=== PATIENT | female | born 1940 | race Caucasian/White ===

== ENCOUNTER 2016-11-27 07:01 | Outpatient (CLI) | payer MEDICARE, OTHER ==
[~2016-11-27] VITALS: Ht 162.6 cm; Wt 77.3 kg
[2016-11-27] VITALS (13 sets, daily range): BP systolic 103–169; BP diastolic 55–95; PULSE 63–81; TEMP 97.4–97.5
[2016-11-27] MEDS ORDERED: CRESTOR40 MG PO (07:19)
[2016-11-27] MEDS ORDERED: ASPIRIN E.C. 8181 MG PO (07:20)
[2016-11-27] MEDS ORDERED: LOPRESSOR 225 MG/TAB PO (07:22)
[2016-11-27] MEDS ORDERED: AMBIEN 10MG10 MG PO (07:23)
[2016-11-27] MEDS ORDERED: GAVISCON F1 TAB.CHEW PO (07:24)
[2016-11-27 07:43] LABS: HEMATOCRIT 42.1 % (37.0-47.0); HEMOGLOBIN 13.7 g/dl (12.5-16.0); MEAN CELL VOLUME 88 fl (80.0-100.0); MEAN CORPUSCULAR HEMOGLOBIN 29 pg (27.0-31.0); MEAN CORPUSCULAR HGB CONC 33 g/dl (33.0-37.0); PLATELET COUNT 174 K/mm3 (130-400); RED BLOOD COUNT 4.79 M/mm3 (4.10-5.30); REDCELL DISTRIBUTION WIDTH-CV 13.8 % (11.5-14.5); WHITE BLOOD COUNT 5.3 K/mm3 (4.8-10.8)
[2016-11-27 07:49] LABS: INR 0.9 (0.8-3.0); PROTHROMBIN TIME 10.2 SECONDS (9.7-12.8)
[2016-11-27 08:01] LABS: CALCIUM 8.7 mg/dL (8.4-10.2); CREATININE, serum 0.88 mg/dL (0.52-1.25); POTASSIUM 3.7 mmol/L (3.4-5.0)
== END 2016-11-27 14:17 | disposition home or self-care (01) ==
LOC: COL.RAD 07:01
PROVIDERS: Internal Medicine Interventional Cardiology
DX: I35.1 Nonrheumatic aortic (valve) insufficiency (principal); I31.3 Pericardial effusion (noninflammatory); R06.02 Shortness of breath; R53.83 Other fatigue; Z90.710 Acquired absence of both cervix and uterus

== ENCOUNTER 2018-02-27 08:19 | Emergency (ER) | payer MEDICARE, OTHER ==
[~2018-02-27] VITALS: Ht 162.6 cm; Wt 75.0 kg
[~2018-02-27 08:19] MED LIST: AMBIEN 10MG10 MG PO; ASPIRIN E.C. 8181 MG PO; CRESTOR40 MG PO; GAVISCON F1 TAB.CHEW PO; LOPRESSOR 225 MG/TAB PO
[2018-02-27 08:23] VITALS: BP 128/88; TEMP 97.4
[2018-02-27] MEDS ORDERED: DRISDOL50000 IU PO (08:49)
[2018-02-27] MEDS ORDERED: CRESTOR40 MG PO (08:50)
[2018-02-27] MEDS ORDERED: ASPIRIN E.C. 8181 MG PO (08:50)
[2018-02-27] MEDS ORDERED: LOPRESSOR 225 MG/TAB PO (08:51)
[2018-02-27] MEDS ORDERED: POLYMYXIN B/TRIMETH OS (08:52)
[2018-02-27] MEDS ORDERED: PRED FORTE 1 ML1 ML OS (08:52)
[2018-02-27 08:54] LABS: COLLECTION METHOD CLEAN CATCH
[2018-02-27 08:56] LABS: BASO % 0.4 % (0.0-2.0); EOS # 0.1 (0.0-0.7); EOS % 1.3 % (0-4.0); GRAN # 2.9 (1.4-6.5); GRAN % 60.7 % (42.2-75.2); HEMATOCRIT 42.4 % (37.0-47.0); HEMOGLOBIN 13.4 g/dl (12.5-16.0); LYMPH # 1.4 (1.2-3.4); LYMPH % 29.4 % (20.0-51.0); MEAN CELL VOLUME 90 fl (80.0-100.0); MEAN CORPUSCULAR HEMOGLOBIN 29 pg (27.0-31.0); MEAN CORPUSCULAR HGB CONC 32 g/dl (33.0-37.0); MEAN PLATELET VOLUME 9.5 fl (7.4-10.4); MONO # 0.4 (0.1-0.6); PLATELET COUNT 150 K/mm3 (130-400); RED BLOOD COUNT 4.69 M/mm3 (4.10-5.30); REDCELL DISTRIBUTION WIDTH-CV 13.5 % (11.5-14.5)
[2018-02-27 09:05] LABS: PH 7 (5-8); URINE APPEARANCE Cloudy; URINE BACTERIA None Seen /hpf; URINE BILIRUBIN Negative (NEGATIVE); URINE BLOOD 3+ (NEGATIVE); URINE COLOR Red; URINE GLUCOSE Negative (NEGATIVE); URINE KETONE Negative (NEGATIVE); URINE LEUKOCYTE ESTERASE Trace (NEGATIVE); URINE NITRATE Negative (NEGATIVE); URINE PROTEIN(semi-quant) 2+ (NEGATIVE); URINE RBC >50 /hpf; URINE UROBILINOGEN Negative (NEGATIVE)
[2018-02-27 09:09] LABS: ALANINE AMINOTRANSFERASE 32 U/L (9-52); ALBUMIN 3.7 gm/dL (3.5-5.0); ALKALINE PHOSPHATASE 60 U/L (50-136); ANION GAP 4 mmol/L (7-16); AST,SGOT 17 U/L (15-37); BILIRUBIN,TOTAL 0.4 mg/dL (0.0-1.0); BLOOD UREA NITROGEN 18 mg/dL (7-17); C-REACTIVE PROTEIN < 0.5 mg/dL (0.0-0.9); CALCIUM 8.7 mg/dL (8.4-10.2); CARBON DIOXIDE 28 mmol/L (22-30); CHLORIDE 111 mmol/L (98-107); CREATININE, serum 0.89 mg/dL (0.52-1.25); GLUCOSE 95 mg/dL (74-106); SODIUM 143 mmol/L (137-145); TOTAL PROTEIN 6.2 gm/dL (6.4-8.2)
[2018-02-27] MEDS ORDERED: ZOFRAN ODT4 MG PO (10:40)
[2018-02-27] MEDS ORDERED: NORCO 325 MG-51 TAB PO (10:40)
[2018-02-27 11:35] VITALS: PULSE 71
== END 2018-02-27 11:36 | disposition home or self-care (01) ==
LOC: COL.ER 08:19
PROVIDERS: Physician Assistant
DX: N20.0 Calculus of kidney (principal); I10 Essential (primary) hypertension; K21.9 Gastro-esophageal reflux disease without esophagitis; E78.5 Hyperlipidemia, unspecified; Z79.82 Long term (current) use of aspirin
CPT/HCPCS: J1885; J7030

== ENCOUNTER → 2018-03-07 | Outpatient (CLI) | payer MEDICARE, OTHER ==
[~2018-03-07] MED LIST changes: +DRISDOL50000 IU PO; +NORCO 325 MG-51 TAB PO; +POLYMYXIN B/TRIMETH OS; +PRED FORTE 1 ML1 ML OS; +ZOFRAN ODT4 MG PO
== END ==
LOC: COL.RAD 10:00
DX: N20.0 Calculus of kidney (principal); N94.89 Other specified conditions associated with female genital organs and menstrual cycle
CPT/HCPCS: Q9967

== ENCOUNTER 2020-03-21 13:57 | Observation (INO) | payer MEDICARE, OTHER ==
[~2020-03-21] VITALS: Ht 162.6 cm; Wt 72.8 kg
[2020-03-21 14:29] LABS: BASO % 0.7 % (0.0-2.0); EOS # 0.1 (0.0-0.7); GRAN # 3.2 (1.4-6.5); HEMATOCRIT 48.4 % (37.0-47.0); HEMOGLOBIN 15.3 g/dl (12.5-16.0); LYMPH # 1.7 (1.2-3.4); LYMPH % 31.7 % (20.0-51.0); MEAN CELL VOLUME 91 fl (80.0-100.0); MEAN CORPUSCULAR HEMOGLOBIN 29 pg (27.0-31.0); MEAN CORPUSCULAR HGB CONC 32 g/dl (33.0-37.0); MEAN PLATELET VOLUME 9.7 fl (7.4-10.4); MONO # 0.4 (0.1-0.6); MONO % 6.4 % (1.7-9.3); PLATELET COUNT 240 K/mm3 (130-400); RED BLOOD COUNT 5.35 M/mm3 (4.10-5.30); REDCELL DISTRIBUTION WIDTH-CV 14.4 % (11.5-14.5)
[2020-03-21 14:37] LABS: ALANINE AMINOTRANSFERASE 17 U/L (4-34); ALBUMIN 4.2 gm/dL (3.5-5.0); ALKALINE PHOSPHATASE 97 U/L (50-136); ANION GAP 7 mmol/L (7-16); AST,SGOT 21 U/L (15-37); BILIRUBIN,TOTAL 0.6 mg/dL (0.0-1.0); BLOOD UREA NITROGEN 18 mg/dL (7-17); CALCIUM 8.9 mg/dL (8.4-10.2); CARBON DIOXIDE 30 mmol/L (22-30); CHLORIDE 104 mmol/L (98-107); CREATININE, serum 0.93 (0.52-1.25); GLUCOSE 97 mg/dL (74-106); LIPASE 79 U/L (23-300); POTASSIUM 4.1 mmol/L (3.4-5.0); SODIUM 140 mmol/L (137-145)
[2020-03-21 14:39] LABS: C-REACTIVE PROTEIN < 0.5 mg/dL (0.0-0.9)
[2020-03-21] MEDS ORDERED: UNISOM25 MG PO (15:56)
--- NOTE | 2020-03-21 18:52 | NUR ---
RECEIVED REPORT FROM ED NURSE, NENA. AWAITING ARRIVAL OF PATIENT TO ROOM 328.
--- NOTE | 2020-03-21 19:18 | NUR ---
PATIENT ARRIVED TO ROOM 328 VIA W/C ACCOMPANIED BY ER PCT.
[2020-03-21 19:20] VITALS: BP 127/72; PULSE 86; TEMP 97.8
[2020-03-21 21:56] VITALS: BP 132/75; PULSE 80; TEMP 98.3
[2020-03-21 22:43] LABS: HEMATOCRIT 42.6 % (37.0-47.0); HEMOGLOBIN 13.4 g/dl (12.5-16.0)
[2020-03-21 23:37] LABS: COLLECTION METHOD CLEAN CATCH
[2020-03-22] VITALS (12 sets, daily range): BP systolic 113–149; BP diastolic 57–89; PULSE 70–89; TEMP 97.4–97.9
[2020-03-22] LABS: MUCOUS Present /lpf; PH 7 (5-8); SQUAMOUS EPITHELIAL 0-2 /hpf; URINE APPEARANCE Clear; URINE BACTERIA None Seen /hpf; URINE BILIRUBIN Negative (NEGATIVE); URINE BLOOD 1+ (NEGATIVE); URINE COLOR Straw; URINE GLUCOSE Negative (NEGATIVE); URINE KETONE Negative (NEGATIVE); URINE LEUKOCYTE ESTERASE Negative (NEGATIVE); URINE NITRATE Negative (NEGATIVE); URINE PROTEIN(semi-quant) Negative (NEGATIVE); URINE RBC 0-2 /hpf; URINE UROBILINOGEN Negative (NEGATIVE)
--- NOTE | 2020-03-22 07:13 | NUR ---
Sitting on edge of bed. Alert and oriented x4. Has to keep getting up to BSC as she had doen the bowel prep through the night. Stool brownish red in color. Patient denies pain. Ready to have colonoscopy done to see what the issue is. Denies needs at this time.
--- NOTE | 2020-03-22 07:40 | NUR ---
CHANGE OF SHIFT REPORT GIVEN TO DAY SHIFT NURSE, MONIQUE. PATIENT CONTINUES TAKING BOWEL PREP WITH NPO DIET. IVF INFUSING WITH NO PROBLEMS. TELE IN PLACE.
[2020-03-22 08:14] LABS: HEMATOCRIT 44.2 % (37.0-47.0); HEMOGLOBIN 13.9 g/dl (12.5-16.0)
[2020-03-22 08:21] LABS: CALCIUM 8.5 mg/dL (8.4-10.2); CREATININE, serum 0.75 (0.52-1.25); POTASSIUM 3.8 mmol/L (3.4-5.0)
--- NOTE | 2020-03-22 09:25 | NUR ---
Consent for colonoscopy reviewed with the patient. Verbalizes understanding and signs consent. Consent placed on chart.
--- NOTE | 2020-03-22 10:28 | NUR ---
Patient to endoscopy via bed at this time.
--- NOTE | 2020-03-22 11:36 | NUR ---
Patient to room from endoscopy via bed. Awake and alert. Denies pain. Says that it feels like she just took a nap. Discussed findings with the patient and she says that she was informed of them downstairs. Spouse in room with the patient. Denies additional needs.
--- NOTE | 2020-03-22 13:48 | NUR ---
Sitting up in bed eating lunch. Denies pain. Is hopeful to go home in a little bit. No nausea or vomiting. Has been up to the bathroom and urinated, no BM. Spouse in room with the patient. Denies additional needs.
--- NOTE | 2020-03-22 14:17 | NUR ---
First visit from the technical aid. No needs right now.
--- NOTE | 2020-03-22 15:39 | NUR ---
Review all discharge instructions with the patient and her . Denies questions and signs discharge paperwork. Discharge packet provided to the patient. Patient will get dressed and gather all belongings at this time. Will use call light when she is ready to discharge.
--- NOTE | 2020-03-22 15:55 | NUR ---
Patient assisted out to vehicle by EDILIA Najera, with all belongings ambulatory.
== END 2020-03-22 15:55 | disposition home or self-care (01) ==
LOC: COL.ER 13:57 → JCC 16:01
PROVIDERS: Family Medicine; Physician Assistant; ADMIT Student in an Organized Health Care Education/Training Program
DX: K92.1 Melena (principal); D12.2 Benign neoplasm of ascending colon; D12.0 Benign neoplasm of cecum; K57.30 Diverticulosis of large intestine without perforation or abscess without bleeding; E78.5 Hyperlipidemia, unspecified; G47.33 Obstructive sleep apnea (adult) (pediatric); D64.9 Anemia, unspecified; R51.9 Headache, unspecified; Z79.82 Long term (current) use of aspirin; Z91.14 Patient's other noncompliance with medication regimen; Z79.899 Other long term (current) drug therapy
CPT/HCPCS: C9113; G0378; J2405; J2704; J3010; J7030; J7120